=== PATIENT | male | born 1945 | race Hispanic/Latino ===

== ENCOUNTER 2024-12-10 06:00 | Day surgery (SDC) | payer OTHER ==
[2024-12-10] VITALS (10 sets, daily range): BP systolic 116–145; BP diastolic 55–71; PULSE 51–69; RESP 12–18; TEMP 97.2–97.6
[~2024-12-10] VITALS: Ht 170.2 cm; Wt 93.0 kg
[~2024-12-10 06:00] MED LIST: ALBU18HF7 IH; ASPI-1005 PO; ATOR40TA69 PO; FINA5TAB41 PO; FLUT1BLS12 IH; METO25TA6 PO; OMEP40CA21 PO; SERT-440 PO; SPIR25TA PO; TIOT18CA3 IH
[2024-12-10] MEDS: 0.9%NACL 1000ML 1,000 ML IV ONE (06:54)
[2024-12-10] MEDS ORDERED: proPOFol 10 MG/ML 20ML VIAL IV ONE (07:59)
== END 2024-12-10 09:20 ==
LOC: DAH 06:00 → ENDO 06:00
PROVIDERS: ATTEND Internal Medicine Gastroenterology
DX: K59.00 Constipation, unspecified (principal); K22.70 Barrett's esophagus without dysplasia; R13.10 Dysphagia, unspecified; K29.50 Unspecified chronic gastritis without bleeding; D12.3 Benign neoplasm of transverse colon; K31.89 Other diseases of stomach and duodenum; K31.7 Polyp of stomach and duodenum; K57.30 Diverticulosis of large intestine without perforation or abscess without bleeding; I10 Essential (primary) hypertension; E66.9 Obesity, unspecified; Z80.0 Family history of malignant neoplasm of digestive organs; Z68.32 Body mass index [BMI] 32.0-32.9, adult; Z79.899 Other long term (current) drug therapy; Z95.1 Presence of aortocoronary bypass graft
CPT/HCPCS: 43239; 43251; 45380; 45385; J7030 ×2; J2704; A4620; A4215; A4223; A7002; A4222; A4221; A4663; A4606; J3490